=== PATIENT | female | born 1960 | race Caucasian/White ===

== ENCOUNTER → 2017-07-30 | Outpatient (CLI) | payer OTHER ==
[~2017-07-30] MED LIST: GLUMETZA500 MG PO; LORTAB 5/500 501 TAB PO; MAXZIDE-25MG TA1 TAB PO; PAXIL40 MG PO; SYNTHROID0.137 MG PO; ZESTRIL40 MG PO
== END ==
LOC: MC.RAD 15:17
DX: Z12.31 Encounter for screening mammogram for malignant neoplasm of breast (principal)

== ENCOUNTER → 2020-10-24 | Outpatient (CLI) | payer BC | LOC: MC.RAD 07:43 | DX: Z12.31 Encounter for screening mammogram for malignant neoplasm of breast (principal); Z01.419 Encounter for gynecological examination (general) (routine) without abnormal findings ==